=== PATIENT | female | born 1945 | race Caucasian/White ===

== ENCOUNTER 2022-05-20 18:45 | Emergency (ER) | payer OTHER, BC ==
[2022-05-20 19:01] VITALS: BP 150/85; PULSE 83; RESP 18; TEMP 98.4; BMI 19.5
== END 2022-05-20 21:20 | disposition home or self-care (01) ==
LOC: FER 18:45
DX: S62.661A Nondisplaced fracture of distal phalanx of left index finger, initial encounter for closed fracture (principal); M20.012 Mallet finger of left finger(s); W01.0XXA Fall on same level from slipping, tripping and stumbling without subsequent striking against object, initial encounter
CPT/HCPCS: 73140-TC-LT-FY; 99283-25